=== PATIENT | male | born 1990 | race Caucasian/White ===

== ENCOUNTER 2024-05-31 20:32 | Emergency (ER) | payer OTHER, SELFPAY ==
[2024-05-31 21:01] VITALS: BP 142/88; PULSE 56; RESP 18; TEMP 36.2; O2SAT 98; BMI 31.4
--- NOTE | 2024-05-31 21:37 | ED.GENADULT ---
HPI - General Adult General Chief complaint: Abdominal Pain Stated complaint: Vomiting 24 hrs Time Seen by Provider: 05/31/24 21:30 History of Present Illness HPI narrative: This 34-year-old male comes in reporting nausea, vomiting, and diarrhea for the past 24 hours. He arrives here with normal vital signs. He does not report any fevers. He states that he has not been able to take much for food and drink today. Related Data Allergies Allergy/AdvReac Type Severity Reaction Status Date / Time No Known Drug Allergies Allergy Verified 05/31/24 21:05 Review of Systems Status of ROS: Reports: 10 or more systems reviewed and unremarkable except as noted in History and below Narrative: Constitutional: No fevers, no weight gain or loss. Eyes: No discharge. No vision changes. HENT: No congestion, no sore throat, no ear pain. Cardiovascular: No chest pain, no palpitations. Respiratory: No shortness of breath, no wheezes, no cough. Gastrointestinal: Diffuse mild abdominal pain with nausea, vomiting, and diarrhea. His last diarrhea was this morning. Genitourinary: No dysuria, no hematuria. Musculoskeletal: Normal range of motion. Skin: No rashes, no pruritis. Neurological: No dizziness, weakness, sensory change, speech change. Endo/Heme/Allergies: No bruising or bleeding. No polydipsia. Pysch: no suicidality, no anxiety, no insomnia. All other systems reviewed and are negative. Exam Narrative: Exam Narrative: Constitutional: Well-developed, well-nourished, no acute distress. HEENT: Normocephalic, atraumatic. Neck: Normal range of motion. Nontender. Supple. Heart: Regular. No murmurs. Normal rate. Intact distal pulses. Lungs: Clear to auscultation. No chest discomfort. No wheezes, rhonchi, or rales. Abdomen: Normal bowel sounds. Mild tenderness throughout the abdomen. No rebound tenderness. Genitalia: Deferred. Back: No midline tenderness. Normal range of motion. Extremities: Normal range of motion. No injury. Skin: Intact. No rash. Warm. No erythema or pallor. Neurologic: No altered sensation. No weakness. Alert and oriented. Psychiatric: No suicidality. No anxiety or depression. No insomnia. Nursing notes and vitals signs are reviewed. Const: Vital Signs, click to edit/add: Vital Signs - 24 hr 05/31/24 21:01 Temperature 97.1 F L Pulse Rate [Pulse Oximeter] 56 L Respiratory Rate 18 Blood Pressure [Ri t Upper Arm] 142/88 H Pulse Oximetry 98 Oxygen Delivery Me thod Room Air Course Vital Signs Vital signs: Initial Vital Signs Temperature 97.1 F L 05/31/24 21:01 Temperature Source Temporal Artery Scan 05/31/24 21:01 Pulse Rate 56 L 05/31/24 21:01 Pulse Rhythm Regular 05/31/24 21:01 Respiratory Rate 18 05/31/24 21:01 Blood Pressure 142/88 H 05/31/24 21:01 Blood Pressure Mean 106 H 05/31/24 21:01 Blood Pressure Position Sitting 05/31/24 21:01 Pulse Oximetry 98 05/31/24 21:01 Oxygen Delivery Method Room Air 05/31/24 21:01 Vital Signs Temperature 97.1 F L 05/31/24 21:01 Pulse Rate 56 L 05/31/24 21:01 Respiratory Rate 18 05/31/24 21:01 Blood Pressure 142/88 H 05/31/24 21:01 Pulse Oximetry 98 05/31/24 21:01 Oxygen Delivery Method Room Air 05/31/24 21:01 Temperature 97.1 F L 05/31/24 21:01 Pulse Rate 56 L 05/31/24 21:01 Respiratory Rate 18 05/31/24 21:01 Blood Pressure 142/88 H 05/31/24 21:01 Pulse Oximetry 98 05/31/24 21:01 Oxygen Delivery Method Room Air 05/31/24 21:01 Medications Administered Medications: Generic Name Dose Route Start Last Admin Trade Name Freq PRN Reason Stop Dose Admin Sodium Chloride 1,000 mls @ 1,000 mls/hr 05/31/24 21:45 05/31/24 22:03 0.9 % Sodium Chloride 1000 Ml IV 05/31/24 22:44 1,000 mls/hr .Q1H LUPE Administration Discontinued Medications Generic Name Dose Route Start Last Admin Trade Name Freq PRN Reason Stop Dose Admin Ketorolac Tromethamine 30 mg 05/31/24 21:35 05/31/24 22:04 Ketorolac 30 Mg/Ml Inj IVP 05/31/24 21:36 30 mg ONCE ONE Administration Ondansetron HCl 4 mg 05/31/24 21:35 05/31/24 22:04 Ondansetron 2 Mg/Ml Inj IVP 05/31/24 21:36 4 mg ONCE ONE Administration Medical Decision Making MDM Narrative Medical decision making narrative: This patient comes in with typical symptoms of viral gastroenteritis including nausea, vomiting, and diarrhea. He arrives here with reassuring vital signs. An IV was established where he did receive a L of normal saline along with Toradol 30 mg and Zofran 4 mg. This brought sufficient relief to his symptoms. He is okay to return home. I did provide [facility] prescriptions for Toradol and Zofran. Discharge Plan Discharge Clinical Impression: Gastroenteritis Patient Disposition: Home, Self-Care Condition: Improved Additional Instructions: Take medication as needed and directed. Frequent sips of fluids and increase diet otherwise as tolerated. Follow up with MD return if worsening. Follow Up/Referrals: Provider,Not a Local [Primary Care Provider] - Stand Alone Forms: [employer] Info Instructions
[2024-05-31] MEDS: 0.9 % SODIUM CHLORIDE 1000 ml 1,000 ML IV (22:03)
[2024-05-31] MEDS: KETOROLAC 30 MG/ML inj IVP (22:04)
[2024-05-31] MEDS: ONDANSETRON 2 MG/ML inj 4 MG IVP (22:04)
== END 2024-05-31 23:16 | disposition home or self-care (01) ==
PROVIDERS: Emergency Provider Emergency Medicine Emergency Medical Services
DX: K52.9 Noninfective gastroenteritis and colitis, unspecified (principal)
CPT/HCPCS: 96374; 96375; 99283; 99284; J1885; J2405; J7030

== ENCOUNTER 2024-06-01 09:54 | Emergency (ER) | payer OTHER, SELFPAY ==
[2024-06-01 10:29] VITALS: BP 138/101; PULSE 65; RESP 22; TEMP 37.3; O2SAT 98
[2024-06-01] MEDS: ONDANSETRON ODT 4 MG TAB PO (10:36)
--- NOTE | 2024-06-01 11:24 | ED.GENADULT ---
HPI - General Adult General Chief complaint: Nausea/Vomiting Stated complaint: Continued Vomiting Time Seen by Provider: 06/01/24 11:24 History of Present Illness HPI narrative: Was seen in ED last night for norovirus. Vomiting x3 days, diarrhea x1 episode. Patient unable to afford zofran prescription he was dc'd with last night. vomiting restarted. patient dizzy. 34-year-old man presenting to the emergency department with concern of worsening abdominal pain continued vomiting. Seen here yesterday and suspected of having of viral gastroenteritis. Was unable to fill his Zofran and Toradol that have been prescribed - cost was a problem and currently without insurance. Was not feeling well last night but started vomiting much more intensely this morning when he went to work. Some nauseated after a an ODT Zofran was given 1 time prior to being seen here in the room Had saved emesis in a bag here in the emergency department. Says that there had been some blood in at and has been present in his emesis since it began. Has not had preceding stomach problems. Mildly sore throat he would blame on repeated vomiting Related Data Home Medications ?Medication ?Instructions ?Recorded ?Confirmed No Known Home Medications 06/01/24 06/01/24 Allergies Allergy/AdvReac Type Severity Reaction Status Date / Time No Known Drug Allergies Allergy Verified 06/01/24 10:29 Review of Systems Status of ROS: Reports: 6 or more systems reviewed and unremarkable except as noted in History and below Exam Narrative: Exam Narrative: Appears tired. Skin is warm and dry. Well-perfused. Oropharynx is moderately erythematous. No tae blood apparent. Neck is supple without lymphadenopathy. Lungs are clear. Heart is in regular rate and rhythm. Reproducible pain in the epigastrium. No peritoneal signs in the abdomen. Const: Vital Signs, click to edit/add: Vital Signs - 24 hr 06/01/24 10:29 Temperature 99.1 F Pulse Rate [Pulse Oximeter] 65 Respiratory Rate 22 Blood Pressure [Ri ght Upper Arm] 138/101 H Pulse Oximetry 98 Oxygen Delivery Me thod Room Air Documenting provider has reviewed patient's vital signs: yes Course Vital Signs Vital signs: Initial Vital Signs Temperature 99.1 F 06/01/24 10:29 Temperature Source Temporal Artery Scan 06/01/24 10:29 Pulse Rate 65 06/01/24 10:29 Respiratory Rate 22 06/01/24 10:29 Blood Pressure 138/101 H 06/01/24 10:29 Blood Pressure Mean 113 H 06/01/24 10:29 Blood Pressure Position Sitting 06/01/24 10:29 Pulse Oximetry 98 06/01/24 10:29 Oxygen Delivery Method Room Air 06/01/24 10:29 Vital Signs Temperature 99.1 F 06/01/24 10:29 Pulse Rate 65 06/01/24 10:29 Respiratory Rate 22 06/01/24 10:29 Blood Pressure 138/101 H 06/01/24 10:29 Pulse Oximetry 98 06/01/24 10:29 Oxygen Delivery Method Room Air 06/01/24 10:29 Temperature 99.1 F 06/01/24 10:29 Pulse Rate 65 06/01/24 10:29 Respiratory Rate 22 06/01/24 10:29 Blood Pressure 138/101 H 06/01/24 10:29 Pulse Oximetry 98 06/01/24 10:29 Oxygen Delivery Method Room Air 06/01/24 10:29 Medications Administered Medications: Discontinued Medications Generic Name Dose Route Start Last Admin Trade Name Freq PRN Reason Stop Dose Admin Famotidine 20 mg 06/01/24 13:19 06/01/24 13:44 Famotidine 20 Mg Tablet PO 06/01/24 13:20 20 mg ONCE ONE Administration Sodium Chloride 1,000 mls @ 1,000 mls/hr 06/01/24 11:33 06/01/24 13:05 0.9 % Sodium Chloride 1000 Ml IV 06/01/24 12:32 Infused .Q1H ONE Infusion Metoclopramide HCl 10 mg/ 102 mls @ 306 mls/hr 06/01/24 11:33 06/01/24 12:28 Sodium Chloride IVPB 06/01/24 11:34 Infused ONCE ONE Infusion Ketorolac Tromethamine 30 mg 06/01/24 11:33 06/01/24 12:00 Ketorolac 30 Mg/Ml Inj IVP 06/01/24 11:34 30 mg ONCE ONE Administration Lidocaine/Aluminum/Magnesium/Simeth 30 ml 06/01/24 11:33 06/01/24 12:10 Gi Cocktail (Visc Lido/Antacid) 30 Ml PO 06/01/24 11:34 30 ml ONCE ONE Administration Ondansetron HCl 4 mg 06/01/24 10:33 06/01/24 10:36 Ondansetron Odt 4 Mg Tab PO 06/01/24 10:34 4 mg ONCE ONE Administration Medical Decision Making MDM Narrative Medical decision making narrative: Clearly appears that does not feel well. Vitals are reassuring. Abdominal exam is consistent with infectious gastroenteritis more than other pathology. Without prior gastrointestinal problems I would suspect potential Amy-Dos Santos tears if indeed was positive for blood; possibly from gastritis which is most likely infectious considering community prevalence. Would initiate IV fluids and check labs for red flags. Screen for COVID and influenza. After IV hydration, antiemetics is improved. I think GI cocktail was helpful. Given famotidine as well. COVID influenza negative. Labs otherwise reassuring. See patient discharge plan for further discussion Focus on hydration. Slow advance of diet over the next 24-36 hours. Diluted juices, soup broths, crackers, rice, toast. Providing you with 4 tabs of Zofran dissolvables for discharge. Consider liquid antacid/anti-gas like Mylanta equivalent for flares of discomfort in your stomach. Consider also taking famotidine, which also is available [id number], 20-40 mg daily over the next 1-2 weeks. Medical Records Medical records reviewed: Yes I reviewed the patient's medical records Lab Data Lab results reviewed: Yes I reviewed the patient's lab results Labs: Lab Results 06/01/24 Range/Units 12:05 WBC 11.02 H (4.50-11.00) K/uL RBC 5.85 (4.30-5.90) m/uL Hgb 17.0 (13.5-17.5) gm/dL Hct 49.7 (37.0-53.0) % MCV 85 (80-100) fL MCH 29 (26-34) pg MCHC 34 (32-36) gm/dL RDW Coeff of [place] 13.3 (11.5-15.5) % Plt Count 191 (140-440) K/uL Neut % (Auto) 78.5 H (42.0-72.0) % Lymph % (Auto) 12.0 L (20-44) % [place] % (Auto) 8.9 (0.0-11.0) % Eos % (Auto) 0.4 (0.0-7.0) % Baso % (Auto) 0.1 (0.0-3.0) % Neut # (Auto) 8.70 H (1.7-7.0) K/uL Lymph # (Auto) 1.30 (0.90-2.90) K/uL [place] # (Auto) 1.00 H (0.00-0.90) K/UL Eos # (Auto) 0.00 (0.00-0.50) K/uL Baso # (Auto) 0.00 (0.00-0.30) K/uL Abs Immat Gran (auto) 0.00 (0.00-0.30) K/uL Imm/Tot Granulo (auto) 0.1 % Sodium 136 (135-149) mmol/L Potassium 3.6 (3.6-5.1) mmol/L Chloride 104 (96-114) mmol/L Carbon Dioxide 23 (20-32) mmol/L Anion Gap 9 (7-15) mEq/L BUN 11 (5-24) mg/dL Creatinine 0.7 (0.5-1.5) mg/dL Estimated GFR 125 ml/min Glucose 118 H (60-115) mg/dL Calcium 8.9 (8.4-10.6) mg/dL SARS-CoV-2 (PCR) Negative SARS-CoV-2 (Negative) Influenza Type A (PCR) Negative PCR FLU A (Negative) Influenza Type B (PCR) Negative PCR FLU B (Negative) Discharge Plan Discharge Clinical Impression: Vomiting, Abdominal pain, Dehydration Patient Disposition: Home, Self-Care Condition: Improved Additional Instructions: Focus on hydration. Slow advance of diet over the next 24-36 hours. Diluted juices, soup broths, crackers, rice, toast. Providing you with 4 tabs of Zofran dissolvables for discharge. Consider liquid antacid/anti-gas like Mylanta equivalent for flares of discomfort in your stomach. Consider also taking famotidine, which also is available [id number], 20-40 mg daily over the next 1-2 weeks. Prescriptions: No Action No Known Home Medications Follow Up/Referrals: Provider,Not a Local [Primary Care Provider] - Stand Alone Forms: [employer] Info Instructions
[2024-06-01] MEDS: KETOROLAC 30 MG/ML inj IVP (12:00)
[2024-06-01] MEDS: 0.9 % SODIUM CHLORIDE 1000 ml 1,000 ML IV (12:05)
[2024-06-01] MEDS: METOCLOPRAMIDE HCL 10 MG in 0.9 % SODIUM CHLORIDE 100 ml 100 ML 306 MG IVPB (12:08)
[2024-06-01] MEDS: GI COCKTAIL (VISC LIDO/ANTACID) 30 ML PO (12:10)
[2024-06-01 12:16] LABS: Basophils Percent Auto 0.1 % (0.0-3.0); Eosinophils Percent Auto 0.4 % (0.0-7.0); Hematocrit 49.7 % (37.0-53.0); Immature Granulocytes Pct Auto 0.1 %; Mean Corpuscular HGB Conc 34 gm/dL (32-36); Mean Corpuscular Hemoglobin 29 pg (26-34); Mean Corpuscular Volume 85 fL (80-100); Monocytes Percent Auto 8.9 % (0.0-11.0); Neutrophils Percent Auto 78.5 % (42.0-72.0); Platelet Count* 191 K/uL (140-440); RDW Coefficient of Variation % 13.3 % (11.5-15.5); Red Blood Count 5.85 m/uL (4.30-5.90); White Blood Count* 11.02 K/uL (4.50-11.00)
[2024-06-01 12:18] LABS: Slide Review Reflex No
[2024-06-01 12:27] LABS: Chloride* 104 mmol/L (96-114); Potassium* 3.6 mmol/L (3.6-5.1); Sodium* 136 mmol/L (135-149)
[2024-06-01 12:30] LABS: Anion Gap 9 mEq/L (7-15); Blood Urea Nitrogen* 11 mg/dL (5-24); Calcium* 8.9 mg/dL (8.4-10.6); Carbon Dioxide* 23 mmol/L (20-32); Creatinine* 0.7 mg/dL (0.5-1.5); Estimated Glomerular Filt Rate 125 ml/min; Glucose* 118 mg/dL (60-115)
[2024-06-01 12:49] LABS: PCR FLU A Negative PCR FLU A (Negative); PCR FLU B Negative PCR FLU B (Negative); SARS PCR* Negative SARS-CoV-2 (Negative)
[2024-06-01] MEDS: FAMOTIDINE 20 MG TABLET PO (13:44)
--- NOTE | 2024-06-01 13:50 | ED.NURSE ---
4 tablets of 4mg of Zofran sent home with pt.
== END 2024-06-01 13:40 | disposition home or self-care (01) ==
PROVIDERS: Emergency Provider Family Medicine
DX: R11.10 Vomiting, unspecified (principal); R10.9 Unspecified abdominal pain; E86.0 Dehydration
CPT/HCPCS: 36415; 80048; 85025; 87631; 96365; 96375; 99284; A9270; J1885; J2765; J7030